=== PATIENT | male | born 2000 | race African-American/Black ===

== ENCOUNTER 2020-11-25 14:36 | Emergency (ER) | payer SELFPAY ==
[~2020-11-25] VITALS: Ht 177.8 cm; Wt 59.0 kg
[2020-11-25 14:55] VITALS: BP 119/72
== END 2020-11-25 18:15 | disposition home or self-care (01) ==
LOC: ER 14:36
DX: L03.211 Cellulitis of face (principal)
CPT/HCPCS: 99283